=== PATIENT | female | born 1990 | race Caucasian/White ===

== ENCOUNTER 2021-10-31 12:00 | Inpatient (IN) ==
[2021-10-31] MEDS ORDERED: OXYTOCIN 30 UNITS/500 ML BAG IV PRN ×3 (12:50→19:33)
[2021-10-31] MEDS: LACTATED RINGER'S 1,000 ML IV PRN ×2 (13:11→15:50)
--- NOTE | 2021-10-31 13:11 | History & Physical Report ---
Date of Service October 31, 2021 Assessment & Plan (1) Uterine contractions at greater than 20 weeks of gestation: Plan: Patient is a 30-year-old -0-1-1 at 40 weeks of gestation presenting with regular contractions and cervical change, lower extremity edema, history of hemorrhage controlled with Dr. Bauman and packed red blood cells transfusion in 2018 for Vital signs stable afebrile, heart rate reassuring, GBS negative, Plan to admit, monitor, labs, oxytocin augmentation per protocol, AROM when able, All questions were answered. (2) Bilateral lower extremity edema: (3) Anxiety: (4) Spina bifida occulta: (5) Obesity affecting in third trimester, antepartum: (6) History of hemorrhage: Admission and Anticipated Discharge Date Admission Date: October 31, 2021 History of Present Illness Chief Complaint: contractions and swelling Primary Care Provider: Alena Larsen MD Patient is an 30-year-old -0-1-1 at 40 weeks of gestation who has been feeling swelling in her hands and feet for the last 2 weeks. She woke up this morning and passed mucous plug around 8 AM and contractions started around 10 AM. They were every 6 minutes and then they became every 30 minutes. She denies leakage of fluid or vaginal bleeding. She reports good movements. She has had headaches and change in her vision over the last few days but not today. She has nausea but no vomiting. Her blood pressure was 137/87 and urine dip was negative for protein in the office yesterday. Her has been complicated by , 1. obesity, 2. Anxiety, on Zoloft and stable, 3. History of uterine prolapse? and hemorrhage 4 years ago at [facility] in [place], received 2 units of packed red blood cells. Allergies Allergy/AdvReac Type Severity Reaction Status Date / Time acetaminophen [From NyQuil] Allergy Vomiting Unverified 09/28/20 13:03 dextromethorphan Allergy Vomiting Unverified 09/28/20 13:03 [From NyQuil] doxylamine [From NyQuil] Allergy Vomiting Unverified 09/28/20 13:03 pseudoephedrine [From NyQuil] Allergy Vomiting Unverified 09/28/20 13:03 Home Medications Medication Instructions Recorded Confirmed Type sertraline 50 mg tablet (Zoloft) 50 mg PO DAILY #30 tabs 12/02/21 08/01/22 Rx famotidine 20 mg tablet (Pepcid) 20 mg PO BID 10/22/21 10/22/21 History iron,carbonyl 65 mg-vitamin C 125 1 tab PO TID 10/22/21 10/22/21 History mg tablet,delayed release (Vitron-C) ondansetron HCl 4 mg tablet 4 mg PO Q8H PRN Nausea 10/22/21 10/22/21 History vit no.95-ferrous 1 tab PO DAILY 10/22/21 10/22/21 History fumarate 28 mg-folic acid 800 mcg tablet () Patient History Medical History Anxiety Currently History of COVID-19 03/30/20, fever, aches/chills- symptoms have since resolved per nursing assessment History of transfusion 2018 s/p delivery PCOS (polycystic ovarian syndrome) Sciatic nerve pain Spina bifida occulta Per records - no current concerns per last PCP note on 06/13/20 Surgical History History of tooth extraction wisdom teeth Family History Grandmother Breast cancer Social History Smoking Status: Never smoker Second Hand Exposure: No; Hx Alcohol Use: No Hx Substance Use: No Preferred Language: Korean Visual Impairment: No Limitations Hearing Ability: Normal Room Service Server Required: No Beliefs That Will Affect Care: None marital status: Current Living Situation: Spouse and Family current occupational status: employed 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 Feels Safe at Home: Yes Assistive Devices: Contacts and Glasses OB History Full-term in 2018, hemorrhage, received 2 units of packed red blood cells, packed red balloon placed, First trimester [employer] History History of STDs including chlamydia, gonorrhea, herpes Review of Systems as per Subjective / HPI Physical Exam Constitutional: WD/WN, vitals as above well developed, well nourished and + obese Gastrointestinal (Abdomen): normal bowel sounds, soft, nontender, no hepatosplenomegaly (gravid) Musculoskeletal: ext; 03/24 eema Genitourinary: normal external appearance OB Exam Abdomen: + vertex Manual OB Exam: + cervical dilation 3 cm, + cervical effacement 80% and + station -2 OB Exam Monitor Tracing: + external uterine monitor used and + category I bulging bad Results & Data ([facility]) Vital Signs (Past 12 Hours) Vital Signs Pulse BP 10/31/21 12:49 98 H 138/84
[2021-10-31 13:24] LABS: Hematocrit (blood only) 36.8 % (34.1-44.9); Hemoglobin 12.4 g/dl (12.0-16.0); Mean Corpuscular Hemoglobin 31.9 pg (25.0-34.0); Mean Corpuscular Hgb Conc 33.7 g/dL (32.0-36.0); Mean Corpuscular Volume 94.6 fL (80.0-100.0); Mean Platelet Volume 10.8 fL (9.4-12.3); Platelet Count 165 K/uL (130-400); RDW Coefficient of Variation 15.4 % (11.5-14.5); Red Blood Count 3.89 M/uL (3.93-5.22); White Blood Count 10.76 K/ul (4.8-10.8)
[2021-10-31 13:55] LABS: Alanine Aminotransferase 11 U/L (7-52); Albumin Globulin Ratio 1.2 (0.9-2); Albumin Level 3.2 gm/dl (3.4-5.0); Alkaline Phosphatase 148 U/L (34-104); Anion Gap 5 (3-11); Aspartate Aminotransferase 17 U/L (13-39); BUN Creatinine Ratio 11.3 (10-20); Bilirubin,Total 0.3 mg/dl (0.2-1.0); Blood Urea Nitrogen 6 mg/dl (6-23); Calcium 8.6 mg/dl (8.5-10.1); Carbon Dioxide 22 mmol/L (21-32); Chloride 109 mmol/L (98-107); Est GFR (African American) 149.8 ml/min; Est GFR (Non-African American) 129.2 ml/min; Globulin 2.7 gm/dl (2.5-4.0); Glucose 87 mg/dl (70-99(Fasting)); Potassium 3.7 mmol/L (3.5-5.1); Sodium 136 mmol/L (136-145); Total Protein 5.9 gm/dl (6.0-8.3)
[2021-10-31] MEDS ORDERED: SODIUM CHLORIDE 0.9% 250 ML IV PRN (14:27)
[2021-10-31 14:41] LABS: Fibrinogen 400 mg/dl (184-400); INR 0.9 (0.9-1.1); Partial Thromboplastin Time 26.8 Seconds (21.0-31.0); Prothrombin Time 9.7 Seconds (9.0-12.0)
--- NOTE | 2021-10-31 14:56 | Anesthesiology Consultation ---
Date of Service October 31, 2021 Assessment & Plan ASA ASA3 Proposed Anesthesia Anesthesia Type: Labor Epidural Risk / Benefits Reviewed With: PT / POA / Parent / Guardian, Accepts Plan and Informed Consent Obtained History Height/Weight Height: 5 ft 1 in Weight: 93 kg Allergies Allergy/AdvReac Type Severity Reaction Status Date / Time acetaminophen [From NyQuil] Allergy Vomiting Unverified 09/28/20 13:03 dextromethorphan Allergy Vomiting Unverified 09/28/20 13:03 [From NyQuil] doxylamine [From NyQuil] Allergy Vomiting Unverified 09/28/20 13:03 pseudoephedrine [From NyQuil] Allergy Vomiting Unverified 09/28/20 13:03 Medications Home Medications Medication Instructions Recorded Confirmed Last Taken sertraline 50 mg tablet (Zoloft) 50 mg PO DAILY #30 tabs 02/22/21 10/31/21 10/30/21 08:00 famotidine 20 mg tablet (Pepcid) 20 mg PO BID 10/22/21 10/31/21 10/30/21 21:00 iron,carbonyl 65 mg-vitamin C 125 1 tab PO BID 10/22/21 10/31/21 10/30/21 21:00 mg tablet,delayed release (Vitron-C) ondansetron HCl 4 mg tablet 4 mg PO Q8H PRN Nausea 10/22/21 10/31/21 10/30/21 08:00 vit no.95-ferrous 1 tab PO DAILY 10/22/21 10/31/21 10/28/21 08:00 fumarate 28 mg-folic acid 800 mcg tablet () Active Medications Generic Name Dose Route Start Last Admin Trade Name Cielo PRN Reason Stop Dose Admin Lactated Ringer's 1,000 mls @ 150 mls/hr 10/31/21 12:50 10/31/21 14:43 Lr IV 11/02/21 12:49 999 mls/hr .Q6H40M PRN Infusion L&D Protocol Protocol Oxytocin 30 units in 500 mls @ 4 mls/hr 10/31/21 12:57 10/31/21 14:34 Pitocin IV 11/02/21 12:56 0.24 units/hr .Q24H PRN 4 mls/hr Labor Induction/Augmentation Titration Protocol 0.24 UNITS/HR Past Medical History Medical History Anxiety Currently History of COVID-19 03/30/20, fever, aches/chills- symptoms have since resolved per nursing assessment May 2021 History of transfusion 2018 s/p delivery PCOS (polycystic ovarian syndrome) hemorrhage 6 hours with G1 Sciatic nerve pain Spina bifida occulta Per records - no current concerns per last PCP note on 06/13/20 Uterine prolapse 6 hours with G1 Exercise / Class Metabolic Activity II 4-5 Yardwork/Stairs/Walk up hill Past Family History Family History Grandmother Breast cancer Mother Ovarian cancer Mother Scoliosis Grandfather (Maternal) Brain tumor Father Hypertension Past Surgical History Surgical History History of dilatation and curettage History of tooth extraction wisdom teeth Past Anesthesia History No Hx of Anesthesia Complications and No Family Hx of Anesthesia Complications History of PONV No Hx of PONV and No Hx of Motion Sickness Social History Smoking Status: Never smoker Hx Alcohol Use: No alcohol intake frequency: holidays/special occasions only Hx Substance Use: No substance use type: does not use Review of Systems denies fever/cough/ colds/ chest pain/ SOB/ KATLIN denies KATLIN Physical Exam Vital Signs Last Vital Signs Temp 36.7 C 10/31/21 13:26 Pulse 95 H 10/31/21 15:41 BP 139/82 10/31/21 15:37 Pulse Ox 100 10/31/21 15:41 ENMT Mouth: no TMJ abnormality and no dentition abnormality Thyromental Distance: > or= 3.5 Finger Breadths Mallampati Class: II Neck neck extension not limited Respiratory normal respiratory effort; no respiratory distress Auscultation: lungs clear to auscultation bilaterally Cardiovascular Rate/Rhythm: regular rate and regular rhythm Neurologic moves all extremities Psychiatric Orientation: alert and oriented x 3 Testing Laboratory Results 10/31/21 13:04 10/31/21 13:04 PT 9.7 Seconds (9.0-12.0) 10/31/21 14:19 INR 0.9 (0.9-1.1) 10/31/21 14:19 APTT 26.8 Seconds (21.0-31.0) 10/31/21 14:19 Blood Type A Positive 10/31/21 13:04 Antibody Screen NEGATIVE 10/31/21 13:04
[2021-10-31] MEDS ORDERED: NALOXONE HCL 0.4 MG/1 ML VIAL/CARP IV PRN (14:58)
[2021-10-31] MEDS ORDERED: diphenhydrAMINE 50 MG/ML VIAL IV PRN (14:58)
[2021-10-31] MEDS ORDERED: NALBUPHINE HCL INJ 10 MG/ML AMP IV PRN (14:58)
[2021-10-31] MEDS ORDERED: ePHEDrine sulfate 50 MG/ML AMP IV PRN (14:58)
[2021-10-31] MEDS ORDERED: NALOXONE HCL 1 MG in SODIUM CHLORIDE 0.9% 1000ML 1,000 ML IV PRN (14:58)
[2021-10-31] MEDS ORDERED: fentaNYL 2MCG/ML ROPIVACAINE 1.25MG/ML 100 ML BAG EPI PRN (14:58)
[2021-10-31] MEDS ORDERED: ONDANSETRON INJ 2 MG/ML 2 ML VIAL IV PRN (14:58)
[2021-10-31] MEDS ORDERED: ePHEDrine sulfate 50 MG/ML AMP ONE (15:04)
[2021-10-31] MEDS ORDERED: fentaNYL citrate 100 MCG/2 ML VIAL ONE (15:05)
[2021-10-31] MEDS ORDERED: BUPIVACAINE 0.25% 30 ML VIAL ONE (15:05)
[2021-10-31] MEDS ORDERED: SODIUM CHLORIDE 0.9% INJ 10 ML VIAL ONE (15:05)
[2021-10-31] MEDS ORDERED: LIDOCAINE 2%/EPINEPHRINE 1:200,000 20 ML SDV ONE (15:05)
[2021-10-31] MEDS ORDERED: fentaNYL 2MCG/ML ROPIVACAINE 1.25MG/ML 100 ML BAG EPI ONE (15:06)
[2021-10-31 15:49] LABS: Creatinine Urine Random 49.4 mg/dl; Protein Creatinine Ratio Urine 0.2 (0-0.2); Total Protein Urine Random 7.7 mg/dl (0-11.9)
--- NOTE | 2021-10-31 16:15 | Obstetrical Progress Note ---
Date of Service October 31, 2021 Assessment & Plan Admission and Anticipated Discharge Date Admission Date: October 31, 2021 Subjective Patient is seen and examined. She is comfortable now received epidural for pain. Vital signs stable afebrile, heart rate category 1, Stollings with contractions every 2 to 4 minutes, Pitocin is at 6, Cervix is 4-5 cm dilated, 80% effaced head at -2 station, bulging bag AROM and with abundant fluids with meconium and lanugo, Continue to monitor closely, All questions were answered. Results & Data ([facility]) Vital Signs (Past 12 Hours) Vital Signs Temp Pulse BP Pulse Ox 10/31/21 16:11 90 98 10/31/21 16:08 74 122/66 10/31/21 16:06 84 100 10/31/21 16:01 90 99 10/31/21 15:56 93 H 99 10/31/21 15:51 90 99 10/31/21 15:49 87 125/73 10/31/21 15:46 91 H 100 10/31/21 15:44 100 H 125/79 10/31/21 15:41 95 H 100 10/31/21 15:36 86 98 10/31/21 15:37 93 H 139/82 10/31/21 15:34 83 127/74 10/31/21 15:31 98 10/31/21 15:31 88 10/31/21 15:31 80 127/77 10/31/21 15:28 88 126/70 10/31/21 15:26 86 99 10/31/21 15:25 86 121/69 10/31/21 15:23 85 128/72 10/31/21 15:21 94 H 91 10/31/21 13:26 36.7 C 10/31/21 12:49 98 H 138/84
--- NOTE | 2021-10-31 18:27 | Obstetrical Progress Note ---
Date of Service October 31, 2021 Assessment & Plan Admission and Anticipated Discharge Date Admission Date: October 31, 2021 Subjective Patient feels pressure VE; 8-9cm/ 90%/ +1 FHR categ I Continue to monitor Empty bladder and anticiapte Results & Data ([facility]) Vital Signs (Past 12 Hours) Vital Signs Temp Pulse Resp BP Pulse Ox 10/31/21 18:21 99 H 100 10/31/21 18:20 96 H 137/81 10/31/21 18:19 92 H 133/82 10/31/21 18:16 97 H 99 10/31/21 18:11 98 H 99 10/31/21 18:06 88 125/76 98 10/31/21 18:01 86 97 10/31/21 17:56 93 H 98 10/31/21 17:52 82 125/83 10/31/21 17:51 79 99 10/31/21 17:46 82 98 10/31/21 17:41 92 H 99 10/31/21 17:36 98 10/31/21 17:36 92 H 10/31/21 17:36 81 117/66 10/31/21 17:31 73 98 10/31/21 17:26 74 98 10/31/21 17:23 71 119/74 10/31/21 17:21 77 99 10/31/21 17:16 75 99 10/31/21 17:11 77 97 10/31/21 17:06 98 10/31/21 17:06 73 10/31/21 17:06 73 113/63 10/31/21 17:01 74 98 10/31/21 16:56 84 98 10/31/21 16:51 78 98 10/31/21 16:46 81 98 10/31/21 16:41 72 98 10/31/21 16:36 88 97 10/31/21 16:37 84 130/67 10/31/21 16:31 89 98 10/31/21 16:26 89 99 10/31/21 16:21 99 10/31/21 16:21 92 H 10/31/21 16:21 99 H 130/87 10/31/21 16:15 20 10/31/21 16:15 36.5 C 20 10/31/21 16:16 84 98 10/31/21 16:11 90 98 10/31/21 16:08 74 122/66 10/31/21 16:06 84 100 10/31/21 16:01 90 99 10/31/21 15:56 93 H 99 10/31/21 15:51 90 99 10/31/21 15:49 87 125/73 10/31/21 15:46 91 H 100 10/31/21 15:44 100 H 125/79 10/31/21 15:41 95 H 100 10/31/21 15:36 86 98 10/31/21 15:37 93 H 139/82 10/31/21 15:34 83 127/74 10/31/21 15:31 98 10/31/21 15:31 88 10/31/21 15:31 80 127/77 10/31/21 15:28 88 126/70 10/31/21 15:26 86 99 10/31/21 15:25 86 121/69 10/31/21 15:23 85 128/72 10/31/21 15:21 94 H 91 10/31/21 13:26 36.7 C 10/31/21 12:49 98 H 138/84
[2021-10-31] MEDS ORDERED: ERYTHROMYCIN OP OINT 1 GM PKT ONE (19:08)
[2021-10-31] MEDS ORDERED: DIPHTHERIA/TETANUS/PERTUSSIS 0.5 ML SYR/VIAL IM ONE (19:33)
[2021-10-31] MEDS ORDERED: oxyCODONE/ACETAMINOPHEN 5mg/325mg TAB PO PRN (19:33)
[2021-10-31] MEDS ORDERED: BENZOCAINE 20% AER SPR 82.5 GM CAN EXT PRN (19:33)
[2021-10-31] MEDS ORDERED: METHYLERGONOVINE MALEATE 0.2 MG/ML AMP IM ONE (19:33)
[2021-10-31] MEDS ORDERED: HYDROCORTISONE ACETATE 25 MG SUPP PR PRN (19:33)
[2021-10-31] MEDS ORDERED: MEASLES, MUMPS & RUBELLA VIRUS VIAL SQ ONE (19:33)
[2021-10-31] MEDS ORDERED: bisacodyL 10 MG SUPP PR PRN (19:33)
--- NOTE | 2021-10-31 19:38 | Delivery Summary ---
Vaginal Delivery Summary Date of Service October 31, 2021 Vaginal Delivery Summary Patient was found to be fluid dilated and desired to push. She pushed through 2 contractions and delivered the head without difficulty. Shoulders were delivered with minimal traction and the baby was handed off to the mother where mouth and nose were suctioned, the cord was clamped times and cut. Baby had meconium stained lanugo on her skin. The baby was giving to the Nursery team. Then the vagina and perineum were checked for lacerations. There were small first-degree lacerations on both labia superiorly and on the perineal skin. Those were repaired with 3-0 Vicryl on SH needle with [id number] stitches. Excellent hemostasis achieved. Rest of the vagina was intact. Then the placenta was delivered spontaneously as intact and complete. Uterus was explored and found to be empty. The lower segment was cleared of all clots and debris's. Fundus was firm and EBL was 200 mL. Mom and baby tolerated procedure well, sponge needle instrument count was correct x2. The baby was a viable female , delivered at 19 11 PM and Apgars were 8/9. No complications happened and I was present during whole procedure.
[2021-10-31] MEDS ORDERED: diphenhydrAMINE Capsule 25 MG CAP PO PRN (20:59)
[2021-10-31] MEDS: METHYLERGONOVINE MALEATE 0.2 MG TAB PO SCH (21:12)
[2021-10-31] MEDS: DOCUSATE SODIUM 100 MG CAP PO SCH (21:12)
[2021-10-31] MEDS: ACETAMINOPHEN 325 MG TAB PO PRN (21:13)
[2021-10-31] MEDS: FAMOTIDINE 20 MG TAB PO SCH (21:13)
--- NOTE | 2021-10-31 21:37 | Anesthesia Procedure Note ---
Date of Service October 31, 2021 Anesthesia Post Epidural Note Vital Signs Vital Signs: Temp Pulse Resp BP Pulse Ox 36.5 C 77 20 113/75 96 10/31/21 16:15 10/31/21 21:34 10/31/21 16:15 10/31/21 21:34 10/31/21 20:06 Pain Intensity Bilateral Abdomen: Pain Intensity: 1 Notes Mental Status: alert / awake / arousable and participated in evaluation Nausea / Vomiting: adequately controlled Pain: adequately controlled Airway Patency, RR, SpO2: stable & adequate BP & HR: stable & adequate Hydration State: stable & adequate Anesthetic Complications: no major complications apparent and Pt Satisfied with anesthetic care Epidural: Removed without complications and With tip intact
[2021-11-01] MEDS: IBUPROFEN 600 MG TAB PO PRN ×4 (00:52→17:10)
[2021-11-01 07:12] LABS: Hematocrit (blood only) 37.3 % (34.1-44.9); Hemoglobin 12.7 g/dl (12.0-16.0); Mean Platelet Volume 10.9 fL (9.4-12.3); Platelet Count 151 K/uL (130-400); RDW Coefficient of Variation 15.2 % (11.5-14.5); Red Blood Count 3.97 M/uL (3.93-5.22); White Blood Count 14.64 K/ul (4.8-10.8)
[2021-11-01] MEDS ORDERED: PRENATAL VITAMIN 1 TAB PO SCH (08:00)
[2021-11-01] MEDS ORDERED: FERROUS SULFATE 325 MG TAB PO SCH (08:00)
[2021-11-01] MEDS: METHYLERGONOVINE MALEATE 0.2 MG TAB PO SCH ×3 (08:06→17:10)
[2021-11-01] MEDS: DOCUSATE SODIUM 100 MG CAP PO SCH (08:06)
[2021-11-01] MEDS: ACETAMINOPHEN 325 MG TAB PO PRN ×2 (08:06→15:19)
[2021-11-01] MEDS: FAMOTIDINE 20 MG TAB PO SCH (08:07)
[2021-11-01] MEDS ORDERED: SERTRALINE HCL 50 MG TABLET PO SCH (09:00)
--- NOTE | 2021-11-01 10:10 | Obstetrical Progress Note ---
Date of Service November 01, 2021 Subjective Ambulation: ambulating normally Voiding: no voiding problems Passing Gas:: Yes Diet Tolerance:: regular diet Lochia:: Small Feeding Type:: breast feeding Current Pain Level(1-10): 0 doing well Physical Exam Constitutional WD/WN, vitals as above Gastrointestinal (Abdomen) normal bowel sounds, soft, nontender, no hepatosplenomegaly Musculoskeletal Extremities: extremities normal to inspection no edema. neg Yolette's Neurologic patellar DTR's 2+ bilat, sensation intact Results & Data ([facility]) Vital Signs (Past 12 Hours) Vital Signs Temp Pulse Resp BP BP Pulse Ox O2 Del Method 11/01/21 07:30 36.7 C 63 18 116/75 99 Room Air 11/01/21 03:00 36.6 C 79 16 111/69 Room Air 10/31/21 23:00 37.0 C 86 16 125/86 Room Air Laboratory Results Laboratory Results - last 48 hr 10/31/21 10/31/21 10/31/21 13:04 13:04 13:04 WBC 10.76 RBC 3.89 L Hgb 12.4 Hct 36.8 MCV 94.6 MCH 31.9 MCHC 33.7 RDW Std Deviation 53.0 H RDW Coeff of Raghavendra 15.4 H Plt Count 165 MPV 10.8 PT INR APTT PTT Ratio Fibrinogen Sodium 136 Potassium 3.7 Chloride 109 H Carbon Dioxide 22 Anion Gap 5 BUN 6 Creatinine 0.53 L Est Cr Clr Drug Dosing Not Reportable Est GFR ( Amer) 149.8 Est GFR (Non-Af Amer) 129.2 BUN/Creatinine Ratio 11.3 Glucose 87 Calcium 8.6 Total Bilirubin 0.3 AST 17 ALT 11 Alkaline Phosphatase 148 H Total Protein 5.9 L Albumin 3.2 L Globulin 2.7 Albumin/Globulin Ratio 1.2 Ur Random Creatinine U Random Total Protein Protein/Creatinin Ratio Blood Type A Positive Antibody Screen NEGATIVE Crossmatch See Detail 10/31/21 10/31/21 11/01/21 14:19 14:50 06:52 WBC 14.64 H RBC 3.97 Hgb 12.7 Hct 37.3 MCV 94.0 MCH 32.0 MCHC 34.0 RDW Std Deviation 53.0 H RDW Coeff of Raghavendra 15.2 H Plt Count 151 MPV 10.9 PT 9.7 INR 0.9 APTT 26.8 PTT Ratio 1.0 Fibrinogen 400 Sodium Potassium Chloride Carbon Dioxide Anion Gap BUN Creatinine Est Cr Clr Drug Dosing Est GFR ( Amer) Est GFR (Non-Af Amer) BUN/Creatinine Ratio Glucose Calcium Total Bilirubin AST ALT Alkaline Phosphatase Total Protein Albumin Globulin Albumin/Globulin Ratio Ur Random Creatinine 49.4 U Random Total Protein 7.7 Protein/Creatinin Ratio 0.2 Blood Type Antibody Screen Crossmatch
[2021-11-01] MEDS ORDERED: bisacodyL 5 MG TABEC PO SCH (20:00)
== END 2021-11-01 21:30 | disposition home or self-care (01) | DRG 807 ==
LOC: OPB 12:00 → 4S1 12:01 → 4E2 22:27